=== PATIENT | male | born 1980 | race Asian ===

== ENCOUNTER 2018-05-07 22:13 | Inpatient (IN) | payer OTHER ==
[~2018-05-07] VITALS: Ht 172.7 cm; Wt 74.8 kg
[2018-05-07 22:15] VITALS: BP_SYST 113
[2018-05-07] MEDS ORDERED: NACL 0.9% 1,000 ML IV ONE (22:45)
[2018-05-07] MEDS ORDERED: MORPHINE 4 MG/ML INJ. SYRINGE IVP ONE ×2 (22:45→23:45)
[2018-05-07 23:10] LABS: BASOPHILS # (AUTO) 0.1 K/uL (0.0-0.2); BASOPHILS % (AUTO) 0.5 % (0.0-2.0); EOSINOPHILS % (AUTO) 0.3 % (0.0-4.0); HEMATOCRIT 41.9 % (36-54); HEMOGLOBIN 13.5 g/dL (14.0-18.0); LYMPHOCYTES # (AUTO) 1.1 K/uL (1.0-5.5); LYMPHOCYTES % (AUTO) 9.5 % (20.5-51.5); MEAN CORPUSCULAR HEMOGLOBIN 28 pg (27-31); MEAN CORPUSCULAR HGB CONC 32 % (32-36); MEAN CORPUSCULAR VOLUME 87 fL (79.0-98.0); MONOCYTES # (AUTO) 0.7 K/uL (0.0-1.0); MONOCYTES % (AUTO) 5.6 % (1.7-9.3); NEUTROPHILS % (AUTO) 84.1 % (40.0-70.0); PLATELET COUNT (AUTO) 210 K/uL (130-430); RED BLOOD CELL COUNT(AUTO) 4.81 MIL/uL (4.2-6.2); RED CELL DISTRIBUTION WIDTH 11.8 % (9.0-15.0); WHITE BLOOD COUNT (AUTO) 11.9 K/uL (4.8-10.8)
[2018-05-07 23:23] LABS: CALCIUM 9.3 mg/dL (8.4-11.0); CREATININE 1.05 mg/dL (0.55-1.30); POTASSIUM 3.7 mmol/L (3.5-5.1)
[2018-05-07 23:27] LABS: ALBUMIN 4.1 g/dL (3.4-4.8); TOTAL BILIRUBIN 0.6 mg/dL (0.0-1.0)
[2018-05-08] VITALS (7 sets, daily range): BP systolic 101–131
[2018-05-08 00:40] LABS: BILIRUBIN,URINE NEGATIVE (NEGATIVE); BLOOD, URINE NEGATIVE (NEGATIVE); CLARITY/URINE CLEAR (CLEAR); COLOR,URINE YELLOW (YELLOW); GLUCOSE,URINE NEGATIVE (NEGATIVE); KETONES,URINE NEGATIVE (NEGATIVE); LEUKOCYTE ESTERASE ,URINE NEGATIVE (NEGATIVE); NITRITE, URINE NEGATIVE (NEGATIVE); PROTEIN URINE NEGATIVE (NEGATIVE); UROBILINOGEN,URINE 0.2 (0.2-1.0)
[2018-05-08] MEDS: FAMOTIDINE PF 20 MG/2 ML VIAL IVP SCH ×3 (02:00→20:05)
[2018-05-08] MEDS ORDERED: MORPHINE 4 MG/ML INJ. SYRINGE IVP PRN (02:00)
[2018-05-08] MEDS ORDERED: FAMOTIDINE PF 20 MG/2 ML VIAL ONE (02:53)
[2018-05-08] MEDS ORDERED: FAMOTIDINE PF 20 MG/2 ML VIAL IVP ONE (03:00)
[2018-05-08] MEDS: MAG-AL HYDROX/SIMETH 30 ML UDC PO SCH (09:00)
[2018-05-08] MEDS ORDERED: HYDROmorphone 1 MG INJ. 1 MG/ML AMPUL IVP PRN (12:45)
[2018-05-08] MEDS ORDERED: HYDROmorphone 1 MG INJ. 1 MG/ML AMPUL IM PRN (12:45)
[2018-05-08] MEDS: AMPICILLIN SODIUM/SULBACTAM NA 3 GM in NS 100 ML IV SCH ×3 (13:41→23:05)
[2018-05-08] MEDS: ACETAMINOPHEN 325 MG TABLET PO PRN (20:06)
[2018-05-08] MEDS: ONDANSETRON HCL 4 MG/2 ML VIAL IVP PRN (22:09)
[2018-05-09] VITALS (7 sets, daily range): BP systolic 92–117
[2018-05-09] MEDS: AMPICILLIN SODIUM/SULBACTAM NA 3 GM in NS 100 ML IV SCH ×3 (05:02→17:51)
[2018-05-09] MEDS: ACETAMINOPHEN 325 MG TABLET PO PRN ×4 (05:07→21:01)
[2018-05-09 06:51] LABS: BASOPHILS % (AUTO) 0.3 % (0.0-2.0); EOSINOPHILS # (AUTO) 0.1 K/uL (0.0-0.4); EOSINOPHILS % (AUTO) 1.1 % (0.0-4.0); HEMATOCRIT 32.5 % (36-54); HEMOGLOBIN 11.4 g/dL (14.0-18.0); LYMPHOCYTES # (AUTO) 1.5 K/uL (1.0-5.5); LYMPHOCYTES % (AUTO) 21.6 % (20.5-51.5); MEAN CORPUSCULAR HEMOGLOBIN 30 pg (27-31); MEAN CORPUSCULAR HGB CONC 35 % (32-36); MEAN CORPUSCULAR VOLUME 86 fL (79.0-98.0); MONOCYTES # (AUTO) 0.8 K/uL (0.0-1.0); MONOCYTES % (AUTO) 11.8 % (1.7-9.3); NEUTROPHILS # (AUTO) 4.6 K/uL (1.8-7.7); NEUTROPHILS % (AUTO) 65.2 % (40.0-70.0); PLATELET COUNT (AUTO) 178 K/uL (130-430); RED BLOOD CELL COUNT(AUTO) 3.78 MIL/uL (4.2-6.2); RED CELL DISTRIBUTION WIDTH 11.7 % (9.0-15.0)
[2018-05-09 06:59] LABS: PROTHROMBIN TIME 10.1 SECS (9.5-12.5)
[2018-05-09 07:00] LABS: ALBUMIN 3.6 g/dL (3.4-4.8); CALCIUM 8.3 mg/dL (8.4-11.0); CREATININE 1.08 mg/dL (0.55-1.30); FREE T4 (FREE THYROXINE) 0.6 ng/dL (0.6-1.6); POTASSIUM 4.1 mmol/L (3.5-5.1); THYROID STIMULATING HORMONE 0.26 uIu/mL (0.34-4.82); TOTAL BILIRUBIN 0.8 mg/dL (0.0-1.0)
[2018-05-09] MEDS: ONDANSETRON HCL 4 MG/2 ML VIAL IVP PRN (07:48)
[2018-05-09] MEDS: FAMOTIDINE PF 20 MG/2 ML VIAL IVP SCH ×2 (08:29→21:01)
[2018-05-09] MEDS: MAG-AL HYDROX/SIMETH 30 ML UDC PO SCH (09:00)
[2018-05-09] MEDS ORDERED: D5/0.45 NS 1,000 ML IV SCH (11:00)
[2018-05-09] MEDS ORDERED: SIMETHICONE 40 MG/0.6 ML ML ONE (15:17)
[2018-05-09] MEDS: MEPERIDINE HCL/PF 100 MG/ML AMP ONE ×3 (15:18→16:50)
[2018-05-09] MEDS ORDERED: MIDAZOLAM HCL 5 MG/5 ML VIAL ONE (15:18)
[2018-05-09] MEDS: MIDAZOLAM HCL 5 MG/5 ML VIAL ONE ×3 (15:18→16:50)
[2018-05-09] MEDS ORDERED: IPRATROPIUM/ALBUTEROL SULFATE 3 ML AMPUL.NEB INH PRN (18:15)
[2018-05-09] MEDS ORDERED: IPRATROPIUM/ALBUTEROL SULFATE 3 ML AMPUL.NEB INH SCH (19:00)
[2018-05-09] MEDS ORDERED: IOHEXOL 350 mgI/mL, 150 ML INFUS..BTL IV ONE (19:54)
[2018-05-10 05:18] LABS: HEPATITIS B CORE AB, TOTAL Negative (Negative); HEPATITIS B SURFACE AG Negative (Negative); HEPATITIS C VIRUS AB <0.1 s/co ratio (0.0-0.9)
== END 2018-05-09 21:55 | disposition short-term general hospital (02) | DRG 442 ==
LOC: SED 22:13 → STU 05-08 01:15 → SMU 05-08 13:06 → STU 05-09 19:06
PROVIDERS: ADMIT Internal Medicine; ATTEND Internal Medicine
PROC: 0DB78ZX Excision of Stomach, Pylorus, Via Natural or Artificial Opening Endoscopic, Diagnostic (ICD-10-PCS; principal; 2018-05-09 16:30)
DX: K76.89 Other specified diseases of liver (principal); R18.8 Other ascites; K31.89 Other diseases of stomach and duodenum; K29.70 Gastritis, unspecified, without bleeding; Z80.0 Family history of malignant neoplasm of digestive organs
CPT/HCPCS: 36415; 36600; 43239; 71275; 76700-TC; 80053; 81003; 82105; 82150-TC; 82803-TC; 83690-TC; 84439; 84443-TC; 85025; 85610-TC; 85730-TC; 86704; 86706; 86708; 86803; 87081; 87340; 88305; 88312; 88313; 90656; 93005; 94640; 96361; 96374; 99285; J0295; J1170; J2175; J2250; J2270; J2405; J3490; J7620; Q9967